=== PATIENT | male | born 1975 | race Caucasian/White ===

== ENCOUNTER 2016-09-06 17:14 | Emergency (ER) | payer OTHER ==
[2016-09-06] MEDS ORDERED: CEPHALEXIN 500 MG CAPSULE PO STA (17:39)
--- NOTE | 2016-09-06 17:43 | Emergency Department Record ---
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 His Td is UTD and his pain is presently controlled. Onset/Timin -: Minutes(s) Place: Work Context: Accidental, Power tool use Associated Symptoms: None Treatments Prior to Arrival: Bandage - [place] Coma Scale Eye Response: (4) Open spontaneously Motor Response: (6) Obeys commands Verbal Response: (5) Oriented Mayuri Total: 15 - Related Data Hx Tetanus Toxoid Vaccination: Yes Year of Tetanus Vaccination: 2015 Previous Rx's Medication Instructions Recorded Cephalexin [Keflex] 500 mg PO QID #28 cap 09/06/16 Allergies Allergy/AdvReac Type Severity Reaction Status Date / Time No Known Drug Allergies Allergy Verified 09/06/16 17:29 Travel Screening - Travel/Exposure Within Last 30 Days Have you traveled within the last 30 days?: No Review of Systems Constitutional: Denies: Chills, Fever Eyes: Denies: Eye discharge ENT: Denies: Congestion, Dental pain Respiratory: Denies: Cough Past Medical History - SOCIAL HISTORY Smoking Status: Never smoker Alcohol Use: None Drug Use: None - RESPIRATORY Hx Respiratory Disorders: No - CARDIOVASCULAR Hx Cardio Disorders: Yes Hx Hypertension: Yes - NEURO Hx Neuro Disorders: No - GI Hx GI Disorders: No - Hx Genitourinary Disorders: No - ENDOCRINE Hx Endocrine Disorders: No - MUSCULOSKELETAL Hx Musculoskeletal Disorders: No - PSYCH Hx Psych Problems: No - HEMATOLOGY/ONCOLOGY Hx Hematology/Oncology Disorders: No Family Medical History Any Significant Family History?: No Physical Exam - General General Appearance: Alert, Oriented x3, Cooperative, No acute distress - Head Head exam: Atraumatic, Normocephalic, Normal inspection - Eye Eye exam: Normal appearance, PERRL - Extremities Extremities exam: Tenderness (The distal tip of the L thumb has been avulsed. There is a minimal amount of skin left hanging from the tip and the nail is completely avulsed.). negative: Normal inspection, Full ROM Course Vital Signs 09/06/16 17:24 Temperature 97.3 F L Pulse Rate 85 Respiratory 20 Rate Blood Pressure 176/92 Pulse Ox 95 - Reevaluation(s) Reevaluation #1: I did discuss the issues with the patient and he would like to go to [facility] for treatment. I then did discus the case at length with Dr. Person. He would like the patient's thumb to be cleaned and scrubbed and the flap tacked down. He will see the patient at 8am Friday morning for further evaluation. He does not believe the patient needs to be operated on tonight. 09/06/16 18:52 Reevaluation #2: Procedure note: The L thumb was anesth. with 3 cc's of Sensoricaine using a digital block technique. The open fx distal thumb laceration was scrubbed with a hibicleans sponge and the distal flap was minimally debrided. The flap was then tacked down with 3 4.0 nylon sutures. 09/06/16 19:22 Medical Decision Making - Data Complexity MDM Data: X-Ray Ordered and/or Reviewed - Radiology Data Radiology results: Report reviewed (R Thumb: There is an open fx of the distal tuft of the distal phalynx.) Disposition Disposition: Discharge Clinical Impression: Laceration of left thumb without foreign body with damage to nail Qualifiers: Encounter type: initial encounter Qualified Code(s): S61.112A - Laceration without foreign body of left thumb with damage to nail, initial encounter Disposition: Home, Self-Care Condition: (1) Good Instructions: Laceration (ED) Additional Instructions: Keep dry and take your [place] as needed along with the Keflex. Please see Dr. Person at 8am Friday morning in his office. [id number] [facility]. Office phone # [phone] Prescriptions: Cephalexin [Keflex] 500 mg PO QID #28 cap Forms: Patient Portal Access Time of Disposition: 19:19
[2016-09-06] MEDS ORDERED: CEFAZOLIN 2 Gram 2 GM in DEXTROSE 1 BAG IVPB ONE (18:03)
--- NOTE | 2016-09-10 08:52 | RADIOLOGY REPORT ---
EXAM: RIGHT THUMB HISTORY: PAIN POST INJURY. TECHNIQUE: Three views of the right thumb were obtained. Comparison: None. Encounter: Initial. FINDINGS: Best seen on the AP view is absence of a portion of the tuft of the first distal phalanx. On the oblique and lateral views there are tiny ossific fragments noted posteriorly near the level of the nail bed where there is soft tissue swelling and laceration. No other acute bone nor joint abnormality is seen. IMPRESSION: OPEN FRACTURE OF THE TUFT OF THE FIRST DISTAL PHALANX. JOB NUMBER: [id number] MTDD
== END 2016-09-06 19:35 | disposition home or self-care (01) ==
LOC: ER 17:14
DX: S62.524B Nondisplaced fracture of distal phalanx of right thumb, initial encounter for open fracture (principal); W31.2XXA Contact with powered woodworking and forming machines, initial encounter; Y92.9 Unspecified place or not applicable; Y99.0 Civilian activity done for income or pay
CPT/HCPCS: 12001 ×2; 99284; 96365; 99283; 73140; J0690